=== PATIENT | female | born 1985 | race American Indian/Alaskan Native ===

== ENCOUNTER 2020-12-17 23:38 | Emergency (ER) | payer SELFPAY ==
[2020-12-17 23:45] VITALS: BP 130/75
--- NOTE | 2020-12-18 00:35 | Emergency Department Report ---
ED Headache HPI - General Chief Complaint: Headache Stated Complaint: BUG BITE Time Seen by Provider: 12/18/20 00:22 - History of Present Illness Initial Comments: 35-year-old F [place] female past no history of Chiari malformation presents emerge department complaining of another headache flareup for which she is calling a migraine and seeks to have a migraine treatment. Reports a dull throbbing pain to the right parietal region which is initiated with photophobia. She reports no loss of vision, no presyncope, no chest pain no palpitation, no neck pain,, no fever, chills, sweats. No no vomiting but she does have occas ional nausea. She due to follow-up with neurology but seeks to have some treatment today. I Quality: mild Allergies/Adverse Reactions: Allergies No Known Allergies Allergy (Unverified 04/07/14 22:21) Home Medications: Ambulatory Orders traMADoL [Ultram] 50 mg PO Q6HR PRN #12 tablet 12/18/20 ED Review of Systems ROS: Stated complaint: BUG BITE Other details as noted in HPI Comment: All other systems reviewed and negative ED Past Medical Hx - Past Medical History Previous Medical History?: Yes Hx Arthritis: Yes Hx Asthma: Yes Additional medical history: STAGE 5 ENDOMETRIOSIS. - Surgical History Past Surgical History?: Yes Additional Surgical History: SCOLIOSIS RODS, ENDOMETRIOSIS, LUNG ABCESS, CSEC, L ARM VEIN REMOVAL. - Social History Smoking Status: Never Smoker Substance Use Type: None - Medications Home Medications: Home Medications Medication Instructions Recorded Confirmed Last Taken Type traMADoL [Ultram] 50 mg PO Q6HR PRN #12 tablet 12/18/20 Unknown Rx ED Physical Exam - General Limitations: No Limitations General appearance: alert, in no apparent distress - Head Head exam: Present: atraumatic, normocephalic - Eye Eye exam: Present: normal appearance. Absent: other Pupils: Present: normal accommodation - ENT ENT exam: Present: mucous membranes moist - Neck Neck exam: Present: normal inspection - Respiratory Respiratory exam: Present: normal lung sounds bilaterally. Absent: respiratory distress - Cardiovascular Cardiovascular Exam: Present: regular rate, normal rhythm. Absent: systolic murmur, diastolic murmur, rubs, gallop - GI/Abdominal GI/Abdominal exam: Present: soft, normal bowel sounds - Extremities Exam Extremities exam: Present: normal inspection - Back Exam Back exam: Present: normal inspection - Neurological Exam Neurological exam: Present: alert, oriented X3 - Psychiatric Psychiatric exam: Present: normal affect, normal mood - Skin Skin exam: Present: warm, dry, intact, normal color. Absent: rash ED Course Vital Signs 12/17/20 12/18/20 23:41 06:01 Temperature 97.6 F Pulse Rate 83 76 Respiratory 18 15 Rate Blood Pressure 130/75 O2 Sat by Pulse 100 100 Oximetry ED Medical Decision Making - Medical Decision Making This patient presents with a headache most consistent with headache. Differential diagnosis includes migraine versus tension type headache. No headache red flags. Neurologic exam without evidence of meningismus, focal neurologic findings.Based on the patient's history and physical there is very low clinical suspicion for significant intracranial pathology. The headache was NOT sudden onset, NOT maximal at onset, there are NO neurologic findings, the patient does NOT have a fever, the patient does NOT have any jaw claudication, the patient does NOT endorse a clotting disorder, patient DENIES any trauma or eye pain and the headache is NOT associated with dizziness or ataxia. Presentation not consistent with acute intracranial bleed to include SAH (lack of risk factors, headache history). Presentation not consistent with acute POUCH MAKER infection to include meningitis or brain abscess, Temporal arteritis unlikely, as is acute angle closure glaucoma given history and physical findings. Presentation not consistent with other acute, emergent causes of headache at this time. Plan to treat symptomatically with pain medication. No indication for imaging/LP at this time. CT of the scan of the head was not obtained per patient refused stating that a CT scan is like 500 x-rays and that she knows all about that. She reports only wanting an MRI and states she is due to follow-up with neurology. At the present time there are no neurologic deficits alert and oriented x3 speaks in full sentences he is ambulatory and sound judgment and no limitations. Plan: pain medication, , serial reassessment Reassessment the pain initial pain medication did neuro for her symptoms she did receive a for a Fioricet about 45 minutes later began to complain about the sensation of feeling jittery. Fioricet with provider due to her initially refusing to get an IV for the suspected migraine cocktail. At that she discovered that she did not achieve the regurgitation from the oral medications charge nurse was able to place an IV into her right antecubital fossa the migraine cocktail was provided she reports a reduction in her headache and feeling well enough to the point of requesting discharge. Critical care attestation.: If time is entered above; I have spent that time in minutes in the direct care of this critically ill patient, excluding procedure time. ED Disposition Clinical Impression: Cephalgia Disposition: DC-01 TO HOME OR SELFCARE Is pt being admited?: No Does the pt Need Aspirin: No Condition: Stable Instructions: Migraine Headache, [id number], General Headache Without Cause, [id number] Prescriptions: traMADoL [Ultram] 50 mg PO Q6HR PRN #12 tablet PRN Reason: Pain Referrals: ERNESTINA GALLAGHER MD [Staff Physician] - 3-5 Days PRIMARY CARE, [Primary Care Provider] - 3-5 Days
[2020-12-18] MEDS ORDERED: BUTALB/ACETAMINOPHEN/CAFFEINE TAB PO ONE (00:59)
[2020-12-18] MEDS: diphenhydrAMINE 50 MG/ML VIAL IV STA ×2 (01:05→03:22)
[2020-12-18] MEDS: KETOROLAC 30 MG/1 ML INJ IV STA ×2 (01:06→03:22)
[2020-12-18] MEDS: SODIUM CHLORIDE 0.9% 1000 ML 1,000 ML IV ONE ×2 (01:06→03:22)
[2020-12-18] MEDS: METOCLOPRAMIDE 10 MG/2 ML INJ IV STA ×2 (01:06→03:22)
[2020-12-18] MEDS ORDERED: LORazepam 2 MG/ML VIAL IM STA (03:09)
[2020-12-18] MEDS ORDERED: oxyCODONE /ACETAMINOPHEN 5-325MG TAB PO ONE (03:09)
== END 2020-12-18 06:01 | disposition home or self-care (01) ==
LOC: ED 23:38
DX: R51.9 Headache, unspecified (principal); M19.90 Unspecified osteoarthritis, unspecified site; J45.909 Unspecified asthma, uncomplicated; Z79.899 Other long term (current) drug therapy; Z98.890 Other specified postprocedural states
CPT/HCPCS: 96361; 96372; 96374; 96375; 99283; J1200; J1885; J2060; J2765; J7030